=== PATIENT | male | born 1945 | race Hispanic/Latino ===

== ENCOUNTER 2017-12-09 08:30 | Inpatient (IN) | payer MEDICARE, MEDICAID ==
[2017-12-21] MEDS ORDERED: Lidocaine 1% (PF) 30 ML VIAL ONE (06:30)
[2017-12-21] MEDS ORDERED: Midazolam HCl 2 mg/2 ml Vial ONE (06:30)
[2017-12-21] MEDS ORDERED: Fentanyl 100 MCG/2 ML VIAL ONE ×3 (06:30→09:25)
[2017-12-21] MEDS ORDERED: CEFAZOLIN/Water 2 GM/20 ML SYRINGE ONE (06:33)
[2017-12-21] MEDS ORDERED: Sodium Chloride 0.9% 100 ML ONE (06:33)
[2017-12-21] MEDS ORDERED: Promethazine HCl 25 MG/ML VIAL IM PRN ×3 (06:59→08:01)
[2017-12-21] MEDS ORDERED: traMADol HCl 50 MG TAB PO PRN ×2 (06:59)
[2017-12-21] MEDS ORDERED: Ketorolac Tromethamine 30 MG/ML VIAL IVP PRN (06:59)
[2017-12-21] MEDS ORDERED: Ondansetron HCl/PF 4 MG/2 ML Vial IVP PRN ×3 (06:59→08:01)
[2017-12-21] MEDS ORDERED: Zolpidem Tartrate 5 MG TAB PO PRN (06:59)
[2017-12-21] MEDS ORDERED: Fentanyl 100 MCG/2 ML VIAL IV PRN (07:00)
[2017-12-21] MEDS ORDERED: HYDROcodone/Acetaminophen 7.5/325 mg Tablet PO PRN ×2 (07:01)
[2017-12-21] MEDS ORDERED: Promethazine HCl 25 MG/ML VIAL SLOW IVP PRN (08:01)
[2017-12-21] MEDS ORDERED: Pioglitazone HCl 15 MG TAB PO SCH (09:00)
[2017-12-21] MEDS ORDERED: Amlodipine 5 MG TAB PO SCH (09:00)
[2017-12-21] MEDS ORDERED: Aspirin 81 mg Enteric Coated Tablet PO SCH (09:00)
[2017-12-21] MEDS ORDERED: Meperidine HCl/PF 25 MG/ML VIAL ONE (09:05)
[2017-12-21] MEDS ORDERED: Promethazine HCl 25 MG/ML VIAL ONE (09:29)
--- NOTE | 2017-12-21 10:12 | OP ---
DATE OF PROCEDURE: 12/21/2017 PREOPERATIVE DIAGNOSIS: End-stage tricompartmental osteoarthritis, right knee. POSTOPERATIVE DIAGNOSIS: End-stage tricompartmental osteoarthritis, right knee. OPERATIVE PROCEDURE: Cemented cruciate-sparing computer-assisted right total knee arthroplasty. SURGEON: Vineet Hay M.D. TYRE FINISHER AND EXAMINER: Chadd Lamar PA-C. ANESTHESIA: General via laryngeal mask airway augmented with indwelling adductor canal and a single shot anterior sciatic block. COMPONENTS USED: [employer] Triathlon primary knee components cemented cruciate-sparing siz e 5 femoral component, cemented cruciate-sparing size 5 tibial component with a 13 mm polyethylene fi xed bearing insert, and an A35 patellar button. TOURNIQUET TIME: 61 minutes at 300 mmHg. 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 ESTIMATED BLOOD LOSS: Less than 100. DRAINS: None. SPECIMENS: None. COMPLICATIONS: None. COUNTS: Correct. INPUT: 1200 crystalloid. OUTPUT: No Sorto, none recorded. INDICATIONS FOR SURGERY: Mr. Lewis is a 72-year-old male who has had progressive right kne e pain with standing and walking for the last 5-7 years. He has failed conservative management and e lected to proceed with total knee arthroplasty for treat of his pain. PROCEDURE IN DETAIL: After informed consent was obtained in the preoperative holding area. The duke ent was taken to the operative suite where general anesthesia was induced. Once adequate level of ge neral anesthesia was obtained, the patient was positioned and a well-padded tourniquet was placed carly und the right proximal thigh. The right lower extremity was then prepped and draped in the usual cony rile fashion. Prior to exsanguination, a time out was called and all members of the surgical team ag ángel upon site, surgeon, and patient. The extremity was then exsanguinated and the tourniquet was ra ised. A midline longitudinal incision was then made directly over the patella extending two fingerbr eadths above the superior pole of the patella and two fingerbreadths inferior to the inferior patella r pole of the patella. Deeper subcutaneous layers were dissected sharply and local bleeding was cont rolled with Bovie electrocautery. A quad tendon longitudinal split was then made sharply and a media n parapatellar arthrotomy was carried out both sharp and with Bovie electrocautery, carried down to o ne fingerbreadth medial to the tibial tubercle. The knee was then placed into flexion and the patell a was everted nicely, and a copious fat pad ectomy was performed allowing for greater exposure of the tibia. The computer-assisted distal femoral fiducial was then placed and pinned firmly, and the dis brittany femoral cutting guide was pinned firmly into place. The oscillating saw was then used to remove the appropriate amount of bone. The 4-in-1 cutting block was then placed on the distal femur and the oscillating saw was used to remove the appropriate amount of bone off of the anterior, posterior, an d chamfer cuts. After completion of bone cuts, the anterior cruciate ligament was resected sharply a nd the posterior cruciate ligament retractor was placed and the tibia was subluxed for better exposur e. Partial meniscectomies were carried out, and the tibial computer-assisted fiducial was pinned, an d the cutting guide was placed. Oscillating saw was then used to remove the bone with Hohmann retrac tors used to take care and protect the collateral ligaments. After the tibial resection was performe d, a laminar computer security coordinator was placed in between the freshened bone cuts. The knee placed at 90 degrees a nd further bilateral meniscectomies were carried out, and the curved osteotome and curettage was used to remove any excess bone spurs in the posterior compartment. The trial femoral component, tibial b aseplate were placed with the appropriate polyethylene trial insert with an appropriate polyethylene spacer and patellar button. The knee was taken through full range of motion with flexion and extensi on from 0-90 degrees and patellar broach squarely in the trochlea without any squinting or subluxatio n noted. The knee was also stable to varus and valgus stressing at 0, 15, 45, and 90 degrees of flex ion. The drawer was negative. All trial components were then removed and the keel punch was used to provide the appropriate defect in the tibia with a mallet. The freshened bone cuts were copiously ir rigated with pulsatile lavage of about 1-1/2 liters to remove all excess debris. The freshened bone cuts were then dried and with suction and lap sponge. The knee was placed in flexion and retractors were placed to provide access to all bone cuts. Tobramycin impregnated methyl methacrylate cement wa s then placed on the freshened bone cuts and implants which were malleted firmly into place. Curetta ge and [place] elevators were used to remove any excess bone cement. The knee was placed into full ext ension and the patellar button was placed under compression, and the cement was allowed to cure. Onc e completed, the components were again taken through full range of motion and copious irrigation of t he knee was carried out with another liter of normal saline. All components were inspected fully wit h full range of motion and varus and valgus stressing. There was no laxity noted and full extension w as observed clinically. Primary closure was accomplished with #2 interrupted Vicryl stitch of the ar throtomy defect. This was oversewn with a #2 running Quill barbed stitch. The subcutaneous layer wa s then closed with a running 0 barbed Monocryl stitch and skin closure accomplished with a running ordaz bcuticular 3-0 Monocryl barbed Quill stitch and augmented with cement on the skin. Tourniquet was lo wered. Good spontaneous return of distal pulses was noted clinically and a sterile dressing was appl ied to the incision. The procedure was terminated without any complications. The patient was awaken ed in the operative suite and taken to the recovery room in stable condition.
--- NOTE | 2017-12-21 10:19 | RAD ---
RIGHT KNEE TWO VIEWS: History: Follow up knee replacement. FINDINGS/IMPRESSION: Post op changes are noted. Knee prosthesis is in place. The components appear in adequate position an d alignment. POS: [facility]
[2017-12-21] MEDS ORDERED: Bupivacaine 0.25% HCL 30 ML VIAL ONE (11:55)
[2017-12-21] MEDS ORDERED: Ropivacaine 0.5% HCl/PF (150 MG/30 ML VIAL) ONE (11:55)
[2017-12-21] MEDS: metFORMIN 500 MG TAB PO SCH ×2 (12:23→17:45)
[2017-12-21] MEDS: Ferrous Gluconate 324 MG TAB PO SCH ×2 (12:23→21:19)
[2017-12-21] MEDS: Sodium Chloride 0.9% 1,000 ML IV SCH ×2 (12:23→16:04)
[2017-12-21] MEDS: Senokot S 8.6-50 MG TAB PO SCH ×2 (12:24→21:19)
[2017-12-21] MEDS: Multivitamin W/ Minerals 1 TAB PO SCH (12:24)
[2017-12-21] MEDS ORDERED: Lidocaine 1% PF 5 ML VIAL ONE (12:43)
[2017-12-21] MEDS ORDERED: Ondansetron HCl/PF 4 MG/2 ML Vial ONE (12:43)
[2017-12-21] MEDS ORDERED: PROPOFOL 200 MG/20 ML VIAL ONE (12:43)
[2017-12-21 14:50] LABS: Actual Bicarbonate (HCO3a) 23.1 mEq/L (22-28); Base Excess (BEa) -1.8 mEq/L (-2.0 to +3.0); CO2 Tension 39.8 mmHg (35.0-45.0); Calcium, Ionized 1.1 mmol/L (1.12-1.30); Hemoglobin (Hb) 12.8 g/dL (14.0-18.0); O2 Tension (PaO2) 66.4 mmHg (> 70.0); Puncture Site RBA; pH, Arterial 7.38 (7.35-7.45)
[2017-12-21] MEDS ORDERED: Dextrose 5% in Water 1,000 ML IV PRN (14:59)
[2017-12-21] MEDS ORDERED: Dextrose 50% Abboject 50 ML SYRINGE SLOW IVP PRN (14:59)
[2017-12-21] MEDS ORDERED: Sodium Chloride 0.9% 1,000 ML IV SCH (15:00)
--- NOTE | 2017-12-21 15:10 | PDOC.PN ---
- Subjective Encounter Start Date: 12/21/17 Encounter Start Time: 15:09 Subjective: immediately post my consultation, pt became pale, lethargic, decreaded -: respirations. BP not measurable - Objective MAR Reviewed: Yes Vital Signs & Weight: Vital Signs (12 hours) Temp Pulse Resp BP Pulse Ox 12/21/17 11:46 97.0 F L 67 18 95 12/21/17 10:55 97.0 F L 67 18 134/84 95 Weight Weight 164 lb Result Diagrams: 12/21/17 15:04 12/21/17 15:04 Radiology Reviewed by me: Yes (cxr- no chf, infiltrate, etc) EKG Reviewed by me: Yes (NSR, Nl EKG) Phys Exam - Physical Examination Constitutional: NAD Neck: no JVD Respiratory: clear to auscultation bilateral Cardiovascular: RRR, no significant murmur Gastrointestinal: soft, non-tender, positive bowel sounds Musculoskeletal: no edema Dx/Plan (1) Hypotension Status: Acute Qualifiers: Hypotension type: unspecified hypotension type Qualified Code(s): I95.9 - Hypotension, unspecified (2) DM type 2 (diabetes mellitus, type 2) Status: Chronic Qualifiers: Diabetes mellitus family service center director insulin use: without family service center director use Diabetes mellitus complication status: without complication Qualified Code(s): E11.9 - Type 2 diabetes mellitus without complications (3) Diverticulosis of colon Code(s): K57.30 - DVRTCLOS OF LG INT W/O PERFORATION OR ABSCESS W/O BLEEDING Status: Chronic Qualifiers: Diverticulosis bleeding: diverticulosis without bleeding Qualified Code(s) : K57.30 - Diverticulosis of large intestine without perforation or abscess without bleeding (4) HTN (hypertension) Code(s): I10 - ESSENTIAL (PRIMARY) HYPERTENSION Status: Chronic Qualifiers: Hypertension type: essential hypertension Qualified Code(s): I10 - Essential (primary) hypertension (5) HTN (hypertension) Code(s): I10 - ESSENTIAL (PRIMARY) HYPERTENSION Status: Acute - Plan fluid resuscitation- BP 130/90. has recieved NS bolus. cont NS 100 ml/hr -: hold antihypertensives -: accu/ss -: monitor overnite in CCU -: CXR/ EKG/ cbc, cmp, cortisol, abg ordered.45 min CC time * .
[2017-12-21 15:11] LABS: #Basophils 0.1 thou/uL (0.0-0.2); #Eosinphils 0.1 thou/uL (0.0-0.7); #Lymphocytes 2.5 thou/uL (1.20-3.40); #Monocytes 1.1 thou/uL (0.11-0.59); #Neutrophils 8.1 thou/uL (1.40-6.50); %Basophils 0.5 % (0.0-1.0); %Eosinophils 0.7 % (0.0-10.0); %Lymphocytes 21.3 % (21.0-51.0); %Monocytes 9.2 % (0.0-10.0); %Neutrophils 68.3 % (42.0-75.0); Hemoglobin 12.8 g/dL (14.0-18.0); Mean Corpuscular Hemoglobin 25.6 pg (27.0-31.0); Mean Platelet Volume 8.4 fL (7.4-10.4); Platelet Count 199 thou/uL (130-400); RBC Distribution Width 17.2 % (11.5-14.5); Red Blood Cell (RBC) Count 5.01 mill/uL (4.70-6.10); White Blood Cell (WBC) Count 11.9 thou/uL (4.8-10.8)
[2017-12-21 15:18] LABS: Prothrombin Time 13.1 SEC (12.0-14.7)
[2017-12-21 15:34] LABS: ALT (SGPT) 26 U/L (8-55); AST (SGOT) 25 U/L (5-34); Albumin 3.8 g/dL (3.4-4.8); Alkaline Phosphatase 58 U/L (40-150); Anion Gap 14 mmol/L (10-20); BUN (Urea Nitrogen) 11 mg/dL (8.4-25.7); Bilirubin, Total 0.8 mg/dL (0.2-1.2); Calc. Creatinine Clearance 76 mL/min (70-130); Calcium 8.2 mg/dL (7.8-10.44); Carbon Dioxide 23 mmol/L (23-31); Chloride 104 mmol/L (98-107); Estimated GFR-MDRD 80; Globulin 2.9 g/dL (2.4-3.5); Glucose 143 mg/dL (83-110); Potassium 4.2 mmol/L (3.5-5.1); Protein, Total 6.7 g/dL (5.8-8.1); Sodium 137 mmol/L (136-145)
[2017-12-21 15:36] LABS: Troponin I 0.033 ng/mL (< 0.028)
--- NOTE | 2017-12-21 15:38 | HP ---
CONSULTING PHYSICIAN: Vineet Hay M.D. PRIMARY CARE PROVIDER: Gabriela Govea M.D. HISTORY OF PRESENT ILLNESS: The patient is postop right total knee arthroplasty. He has had a littl e bit of chills, maybe little sweats postoperatively. No chest pain, no shortness of breath. He has had some very minimal nausea. PAST MEDICAL HISTORY: Pertinent for diabetes mellitus, type 2; hypertension; dyslipidemia, history o f diverticulosis bleeding. PAST SURGICAL HISTORY: He had a laparoscopic hand-assisted sigmoid colostomy with splenic flexure mo bilization, inguinal and umbilical hernia repair, appendectomy, cholecystectomy. He has had a ventra l hernia repair. CURRENT MEDICATIONS: At home was aspirin 81 mg a day, pravastatin 10 mg at bedtime, glipizide 5 mg a day, quinapril 20 mg a day, amlodipine 5 mg a day, metformin 1000 mg twice a day, pioglitazone 30 mg daily. ALLERGIES: No known drug allergies. SOCIAL HISTORY: , at bedside, Yakut speaking. FULL CODE status. No tobacco, no alcoh ol. FAMILY HISTORY: Pertinent for hypertension and diabetes in multiple family members. REVIEW OF SYSTEMS: General: At this point, he has some dizziness arising, no fainting. Eyes: No d ouble vision, blurred vision. ENT: No ear, nose, or throat problems. Cardiac: No chest pain, orth opnea, or paroxysmal nocturnal dyspnea. Respiratory: No cough, wheezing, or asthma. Gastrointestin al: Mild nausea, no vomiting, no abdominal pain, no diarrhea. Genitourinary: No hematuria or dysur ia. Musculoskeletal: He has pain in his right knee from the incision. He has minor swelling in his legs. Neurological: No strokes, seizures, or focal weakness. Psychiatric: No anxiety or depressi on. Skin: No chronic bruising or rash. Heme/Lymph: No tender or swollen lymph nodes. PHYSICAL EXAMINATION: VITAL SIGNS: His blood pressure 134/84, pulse 67, respirations 18, temperature 97.0. HEENT: Examination of head, eyes, ears, nose, and throat reveal pupils equal and round. Extraocular movements are intact. Sclerae white. Tympanic membranes clear. Nose clear. Oral mucous membranes are wet. NECK: Supple, without jugular venous distention, adenopathy, or thyromegaly. CHEST: Clear to auscultation and percussion. HEART: Regular rate and rhythm. First and second heart sounds are clear. There are no appreciated murmurs or gallops. ABDOMEN: Soft, bowel sounds are normal. There is no hepatosplenomegaly, no mass, no rebound, no bru its. EXTREMITIES: Reveal no cyanosis, clubbing, or edema. He has a bandaged right leg, mid thigh to mid calf. PULSES: Carotid, radial, femoral, and dorsalis pedis pulses intact. SKIN: Warm and dry without bruises or rash. HEME/LYMPH: No tender or swollen lymph nodes in the axilla, inguinal, or cervical area. NEUROLOGICAL: Cranial nerves II-XII are intact. Moves all extremities. Toes downgoing. LABORATORY AND X-RAY FINDINGS: There is no laboratory on the chart; 12/09/2017, he had a PT/INR of 1 .0. EKG reveals regular sinus rhythm, within normal limits, reviewed by me. ADMITTING DIAGNOSES: Postoperative right total knee arthroplasty; diabetes mellitus, type 2; hyperte nsion; dyslipidemia. PLAN: The patient is stable postop. We will follow with you.
[2017-12-21] MEDS: Aspirin 81 mg Enteric Coated Tablet PO SCH ×2 (15:41→21:19)
--- NOTE | 2017-12-21 15:44 | RAD ---
CHEST ONE VIEW: History: Hypotension. Comparison: 12-09-17 FINDINGS: Cardiac silhouette and pulmonary vasculature are unremarkable. Mediastinum is midline with aortic calcification and a tortuous aorta. No confluent airspace consolidation or evidence of pneumot horax. surveillance monitor leads overlie the chest. IMPRESSION: 1. Atherosclerosis. 2. Chronic type findings are stable. POS: [facility]
[2017-12-21] MEDS: CEFAZOLIN/Water 2 GM/20 ML SYRINGE SLOW IVP SCH ×2 (16:04→21:19)
[2017-12-21] MEDS ORDERED: Aspirin 325 mg Enteric Coated Tablet PO SCH (17:00)
[2017-12-21 19:30] LABS: Troponin I 0.026 ng/mL (< 0.028)
[2017-12-21] MEDS: traMADol HCl 50 MG TAB PO PRN (21:18)
[2017-12-21] MEDS: Pravastatin Sodium 20 MG TAB PO SCH (21:19)
[2017-12-21 21:31] LABS: Troponin I 0.022 ng/mL (< 0.028)
[2017-12-22] MEDS: Bupivacaine 0.5% 50 ML in Sodium Chloride 0.9% 50 ML NERVE BLCK SCH ×2 (02:09→18:07)
[2017-12-22 05:03] LABS: Hemoglobin 11.8 g/dL (14.0-18.0); Mean Corpuscular HGB CONC 33.1 g/dL (32.0-36.0); Mean Corpuscular Volume 78.5 fL (78.0-98.0); Mean Platelet Volume 8.3 fL (7.4-10.4); Platelet Count 189 thou/uL (130-400); RBC Distribution Width 17.1 % (11.5-14.5); Red Blood Cell (RBC) Count 4.53 mill/uL (4.70-6.10); White Blood Cell (WBC) Count 10.4 thou/uL (4.8-10.8)
[2017-12-22] MEDS: Sodium Chloride 0.9% 1,000 ML IV SCH ×4 (07:14→20:15)
[2017-12-22] MEDS: traMADol HCl 50 MG TAB PO PRN (07:33)
[2017-12-22] MEDS: metFORMIN 500 MG TAB PO SCH ×2 (07:35→18:07)
[2017-12-22] MEDS: Aspirin 81 mg Enteric Coated Tablet PO SCH ×2 (07:36→20:13)
[2017-12-22] MEDS: Senokot S 8.6-50 MG TAB PO SCH ×2 (07:37→20:13)
[2017-12-22] MEDS: Ferrous Gluconate 324 MG TAB PO SCH ×2 (07:37→20:13)
[2017-12-22] MEDS: Enoxaparin Sodium 40 MG/0.4 ML SYRINGE SC SCH (07:38)
[2017-12-22] MEDS: Multivitamin W/ Minerals 1 TAB PO SCH (07:38)
--- NOTE | 2017-12-22 08:26 | PRG ---
DATE OF SERVICE: 12/22/2017 This is a 72-year-old gentleman that speaks no Kyrgyz. He says this morning with the help of transl ation he is better, no pain, no shortness of breath. PHYSICAL EXAMINATION: VITAL SIGNS: Sats are 98% on 2 liters, temperature 98, blood pressure resolved 120/80. CHEST: Chest reveals decreased breath sounds without wheezing. CARDIAC: Normal S1, S2. No gallops. ABDOMEN: Soft. EXTREMITIES: No edema. H&H is stable. IMPRESSION: 1. Status post hypertension, presumed vasovagal reaction. 2. Status post total knee. PLAN: He can be transferred out of the ICU. Pulmonary Critical Care will follow at a distance.
--- NOTE | 2017-12-22 09:00 | CON ---
DATE OF CONSULTATION: 12/21/2017 HISTORY: This is a 72-year-old gentleman, Latin-Maltese, speaks no Danish. 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 He was transferred from the surgical floor downstairs after he developed an episode of syncope, pale, lethargic, low blood pressure. Apparently, he is now in the ICU. Chris Kelly is asked to see the patient in the ICU. He was hypotensive that has since resolved . He denies any chest pain, shortness of breath, coughing, or wheezing. He had bolus of fluids before he came down, his blood pressure was 130/90. Previous extensive history is well-outlined in the patient's multiple medical records. He states yi t he had the right total knee surgery done for chronic pain. History of ventral hernia issues, for which he had recent surgery done. PAST MEDICAL HISTORY: Diabetes and hypertension. PREVIOUS SURGERIES: Ventral hernia, sigmoid colostomy, appendix, gallbladder. ALLERGIES: None. TOBACCO: None. ALCOHOL: None. REVIEW OF SYSTEMS: Otherwise negative. PHYSICAL EXAMINATION: GENERAL: ICU, in no distress. VITAL SIGNS: Sats 100%, blood pressure is 130/80, respirations 18, pulse 80. CHEST: Decreased breath, no wheezing. CARDIAC: Normal S1 and S2. No gallops. ABDOMEN: Soft. No masses. LABORATORY AND X-RAY FINDINGS: PO2 was 66, pCO2 of 39 on 2 liters, now his are sats 100%. X-ray was normal. White count 11,000, H and H 12 and 40, platelet count 199. Renal function normal. IMPRESSION: 1. Patient is status post total knee surgery. 2. Brief episode of hypotension, probably a vasovagal reaction. Blood pressure promptly responded. 3. Diabetes. 4. Hypertension. PLAN: He will be observed in the ICU overnight. Cardiac enzymes and EKG have been ordered. At this stage, nothing to suspect, pulmonary emboli. Continue deep venous thrombosis prophylaxis. Supporti ve care. Early ambulation. Consultation note, 70 minutes, 50% in direct patient care.
--- NOTE | 2017-12-22 09:07 | PDOC.PN ---
- Subjective Encounter Start Date: 12/22/17 Encounter Start Time: 09:05 Subjective: alert, doing well - Objective MAR Reviewed: Yes Vital Signs & Weight: Vital Signs (12 hours) Temp Pulse Resp Pulse Ox 12/22/17 07:44 98.2 F 82 20 100 12/22/17 07:00 98.2 F 12/22/17 04:00 98.6 F 12/22/17 00:00 98.6 F Weight Weight 164 lb Most Recent Monitor Data Heart Rate from ECG 82 NIBP 137/83 NIBP BP-Mean 91 Respiration from ECG 22 SpO2 100 I&O: 12/21/17 12/22/17 12/23/17 06:59 06:59 06:59 Intake Total 2870 200 Output Total 1325 275 Balance 1545 -75 Result Diagrams: 12/22/17 04:26 12/21/17 15:04 Additional Labs: Accuchecks 12/22/17 12/21/17 07:15 14:43 POC Glucose 157 H 133 H Phys Exam - Physical Examination Neck: no JVD Respiratory: clear to auscultation bilateral Cardiovascular: RRR, no significant murmur Gastrointestinal: soft, non-tender, positive bowel sounds Musculoskeletal: no edema Dx/Plan (1) Hypotension Status: Acute Qualifiers: Hypotension type: unspecified hypotension type Qualified Code(s): I95.9 - Hypotension, unspecified (2) DM type 2 (diabetes mellitus, type 2) Status: Chronic Qualifiers: Diabetes mellitus terminal superintendent insulin use: without custodial use Diabetes mellitus complication status: without complication Qualified Code(s): E11.9 - Type 2 diabetes mellitus without complications (3) Diverticulosis of colon Code(s): K57.30 - DVRTCLOS OF LG INT W/O PERFORATION OR ABSCESS W/O BLEEDING Status: Chronic Qualifiers: Diverticulosis bleeding: diverticulosis without bleeding Qualified Code(s) : K57.30 - Diverticulosis of large intestine without perforation or abscess without bleeding (4) HTN (hypertension) Code(s): I10 - ESSENTIAL (PRIMARY) HYPERTENSION Status: Chronic Qualifiers: Hypertension type: essential hypertension Qualified Code(s): I10 - Essential (primary) hypertension (5) HTN (hypertension) Code(s): I10 - ESSENTIAL (PRIMARY) HYPERTENSION Status: Acute - Plan hypotension resolved, probable vaso-vagal -: return to ortho -: reinstitute HTN meds when BP goes up -: cont accu/ss * .
[2017-12-22] MEDS: HYDROcodone/Acetaminophen 10/325 mg Tablet PO PRN ×3 (10:13→18:08)
[2017-12-22] MEDS: Pravastatin Sodium 20 MG TAB PO SCH (20:13)
[2017-12-22] MEDS: Zolpidem Tartrate 5 MG TAB PO PRN (22:26)
[2017-12-23] MEDS: Acetaminophen 325 MG TAB PO PRN (03:44)
[2017-12-23] MEDS: Bupivacaine 0.5% 50 ML in Sodium Chloride 0.9% 50 ML NERVE BLCK SCH (05:33)
[2017-12-23 05:57] LABS: Hemoglobin 11.4 g/dL (14.0-18.0); Mean Corpuscular HGB CONC 33.6 g/dL (32.0-36.0); Mean Corpuscular Hemoglobin 26.1 pg (27.0-31.0); Mean Corpuscular Volume 77.8 fL (78.0-98.0); Mean Platelet Volume 8.3 fL (7.4-10.4); Platelet Count 177 thou/uL (130-400); RBC Distribution Width 16.7 % (11.5-14.5); Red Blood Cell (RBC) Count 4.37 mill/uL (4.70-6.10); White Blood Cell (WBC) Count 12.1 thou/uL (4.8-10.8)
[2017-12-23] MEDS: metFORMIN 500 MG TAB PO SCH ×2 (08:50→17:18)
[2017-12-23] MEDS: HYDROcodone/Acetaminophen 10/325 mg Tablet PO PRN ×2 (08:51→21:46)
[2017-12-23] MEDS: Senokot S 8.6-50 MG TAB PO SCH ×2 (10:46→21:44)
[2017-12-23] MEDS: Multivitamin W/ Minerals 1 TAB PO SCH (10:47)
[2017-12-23] MEDS: Ferrous Gluconate 324 MG TAB PO SCH ×2 (10:47→21:43)
[2017-12-23] MEDS: Aspirin 81 mg Enteric Coated Tablet PO SCH ×2 (10:47→21:46)
[2017-12-23] MEDS: Enoxaparin Sodium 40 MG/0.4 ML SYRINGE SC SCH (10:47)
--- NOTE | 2017-12-23 13:10 | PDOC.PN ---
- Subjective Encounter Start Date: 12/23/17 Encounter Start Time: 13:08 Subjective: doing well - Objective MAR Reviewed: Yes Vital Signs & Weight: Vital Signs (12 hours) Temp Pulse Resp BP Pulse Ox 12/23/17 11:11 98.4 F 92 18 119/75 92 L 12/23/17 08:04 98.2 F 93 16 138/82 93 L 12/23/17 05:00 98.4 F 12/23/17 04:35 100 F H 96 20 145/89 H 93 L 12/23/17 03:40 93 L Weight Admit Weight 164 lb Weight 164 lb Most Recent Monitor Data Heart Rate from ECG 80 NIBP 135/80 NIBP BP-Mean 90 Respiration from ECG 18 SpO2 100 I&O: 12/22/17 12/23/17 12/24/17 06:59 06:59 06:59 Intake Total 2870 1120 Output Total 1325 1225 Balance 1545 -105 Result Diagrams: 12/23/17 05:27 12/21/17 15:04 Additional Labs: Accuchecks 12/23/17 12/23/17 12/22/17 09:49 06:24 21:03 POC Glucose 167 H 126 H 189 H 12/22/17 16:58 POC Glucose 161 H Phys Exam - Physical Examination Neck: no JVD Respiratory: clear to auscultation bilateral Cardiovascular: RRR, no significant murmur Gastrointestinal: soft, positive bowel sounds Musculoskeletal: no edema Dx/Plan (1) Hypotension Status: Acute Qualifiers: Hypotension type: unspecified hypotension type Qualified Code(s): I95.9 - Hypotension, unspecified (2) DM type 2 (diabetes mellitus, type 2) Status: Chronic Qualifiers: Diabetes mellitus terminal gauger insulin use: without long-term use Diabetes mellitus complication status: without complication Qualified Code(s): E11.9 - Type 2 diabetes mellitus without complications (3) Diverticulosis of colon Code(s): K57.30 - DVRTCLOS OF LG INT W/O PERFORATION OR ABSCESS W/O BLEEDING Status: Chronic Qualifiers: Diverticulosis bleeding: diverticulosis without bleeding Qualified Code(s) : K57.30 - Diverticulosis of large intestine without perforation or abscess without bleeding (4) HTN (hypertension) Code(s): I10 - ESSENTIAL (PRIMARY) HYPERTENSION Status: Chronic Qualifiers: Hypertension type: essential hypertension Qualified Code(s): I10 - Essential (primary) hypertension (5) HTN (hypertension) Code(s): I10 - ESSENTIAL (PRIMARY) HYPERTENSION Status: Acute Qualifiers: Hypertension type: essential hypertension Qualified Code(s): I10 - Essential (primary) hypertension - Plan doing well, BP stable off home meds- cont to hold -: DM adequately controlled * .
[2017-12-23] MEDS: Sodium Chloride 0.9% 1,000 ML IV SCH ×2 (14:49→17:47)
[2017-12-23] MEDS: HumaLOG 300 UNITS/3 ML VIAL SC PRN ×2 (17:18→21:48)
[2017-12-23] MEDS: Pravastatin Sodium 20 MG TAB PO SCH (21:42)
[2017-12-23] MEDS: Zolpidem Tartrate 5 MG TAB PO PRN (21:42)
[2017-12-24] MEDS: Sodium Chloride 0.9% 1,000 ML IV SCH ×3 (06:44→22:30)
[2017-12-24] MEDS: Aspirin 81 mg Enteric Coated Tablet PO SCH ×2 (10:08→21:32)
[2017-12-24] MEDS: Enoxaparin Sodium 40 MG/0.4 ML SYRINGE SC SCH (10:08)
[2017-12-24] MEDS: Senokot S 8.6-50 MG TAB PO SCH ×2 (10:08→21:34)
[2017-12-24] MEDS: Ferrous Gluconate 324 MG TAB PO SCH ×2 (13:51→21:34)
[2017-12-24] MEDS: metFORMIN 500 MG TAB PO SCH ×2 (13:51→17:41)
[2017-12-24] MEDS: Multivitamin W/ Minerals 1 TAB PO SCH (13:52)
[2017-12-24] MEDS: HYDROcodone/Acetaminophen 10/325 mg Tablet PO PRN (13:52)
[2017-12-24] MEDS: HumaLOG 300 UNITS/3 ML VIAL SC PRN (17:41)
[2017-12-24] MEDS: Pravastatin Sodium 20 MG TAB PO SCH (21:32)
--- NOTE | 2017-12-24 23:16 | PDOC.PN ---
- Subjective Encounter Start Date: 12/24/17 Encounter Start Time: 19:00 Subjective: nsg notes rev, paola ovn - Objective Vital Signs & Weight: Vital Signs (12 hours) Temp Pulse Resp BP Pulse Ox 12/24/17 21:54 98.6 F 92 16 151/88 H 94 L 12/24/17 20:00 98.6 F 92 16 12/24/17 16:00 98.0 F 95 14 134/80 94 L 12/24/17 11:26 98.0 F 95 14 144/85 H 94 L Weight Admit Weight 164 lb Weight 164 lb Most Recent Monitor Data Heart Rate from ECG 80 NIBP 135/80 NIBP BP-Mean 90 Respiration from ECG 18 SpO2 100 I&O: 12/23/17 12/24/17 12/25/17 06:59 06:59 06:59 Intake Total 4623 191 3758 Output Total 1225 450 450 Balance -105 -180 1005 Result Diagrams: 12/23/17 05:27 12/21/17 15:04 Additional Labs: Accuchecks 12/24/17 12/24/17 12/24/17 21:40 16:16 11:12 POC Glucose 176 H 213 H 197 H 12/24/17 05:21 POC Glucose 137 H Dx/Plan - Plan (1) Hypotension resolved - has baseline HTN, should re-start home regimen (2) DM type 2 (diabetes mellitus, type 2) chronic, stable (3) Diverticulosis of colon chronic, stable (4) HTN (hypertension) see above t/c d/c if continued hemodynamic stability Review of Systems - Medications/Allergies Allergies/Adverse Reactions: Allergies Allergy/AdvReac Type Severity Reaction Status Date / Time No Known Drug Allergies Allergy Verified 07/24/16 11:43 Medications: Current Medications Acetaminophen (Tylenol) 650 mg PO Q4H PRN PRN Reason: MUNOZ/ T > 101F; Mild Pain (1-3) Last Admin: 12/23/17 03:44 Dose: 650 mg Hydrocodone Bitart/Acetaminophen (Benzonia 10/325) 1 tab PO Q4H PRN PRN Reason: Moderate Pain (4-6) Last Admin: 12/23/17 21:46 Dose: 1 tab Hydrocodone Bitart/Acetaminophen (Benzonia 10/325) 2 tab PO Q4H PRN PRN Reason: Severe Pain (7-10) Last Admin: 12/24/17 13:52 Dose: 2 tab Aspirin (Ecotrin) 81 mg PO BID [facility] Last Admin: 12/24/17 21:32 Dose: 81 mg Dextrose/Water (Dextrose 50%) 25 gm SLOW IVP PRN PRN PRN Reason: Hypoglycemia Diphenhydramine HCl (Benadryl) 25 mg PO Q6H PRN PRN Reason: Itching Enoxaparin Sodium (Lovenox) 40 mg SC 0900 [facility] Last Admin: 12/24/17 10:08 Dose: 40 mg Fentanyl (Sublimaze) 50 mcg IV Q1H PRN PRN Reason: BREAKTHROUGH PAIN Ferrous Gluconate (Fergon) 324 mg PO BID [facility] Last Admin: 12/24/17 21:34 Dose: 324 mg Glucagon (Glucagon) 1 mg IM PRN PRN PRN Reason: Hypoglycemia Bupivacaine HCl 50 ml/ Sodium (Chloride) 100 mls @ 0 mls/hr NERVE BLCK INF [facility] PRN Reason: As Directed Last Admin: 12/23/17 05:33 Dose: 100 mls Sodium Chloride (Normal Saline 0.9%) 1,000 mls @ 100 mls/hr IV .Q10H [facility] Last Admin: 12/24/17 22:30 Dose: Not Given Dextrose/Water (D5w) 1,000 mls @ 0 mls/hr IV .Q0M PRN; As Directed PRN Reason: Hypoglycemia Insulin Human Lispro (Humalog) 0 units SC .MILD SLIDING SCALE PRN PRN Reason: Mild Correctional Scale Last Admin: 12/24/17 17:41 Dose: 3 unit Iron/Minerals/Multivitamins (Theragran M) 1 tab PO DAILY [facility] Last Admin: 12/24/17 13:52 Dose: 1 tab Metformin HCl (Glucophage) 1,000 mg PO BID-[facility] Last Admin: 12/24/17 17:41 Dose: 1,000 mg Ondansetron HCl (Zofran) 4 mg IVP Q6H PRN PRN Reason: Nausea/Vomiting Pravastatin Sodium (Pravachol) 10 mg PO HS [facility] Last Admin: 12/24/17 21:32 Dose: 10 mg Promethazine HCl (Phenergan) 12.5 mg IM Q4H PRN PRN Reason: Nausea/Vomiting Senna/Docusate Sodium (Senokot S) 2 tab PO BID [facility] Last Admin: 12/24/17 21:34 Dose: 2 tab Sodium Chloride (Flush - Normal Saline) 10 ml IVF Q12HR [facility] Last Admin: 12/24/17 21:34 Dose: 10 ml Sodium Chloride (Flush - Normal Saline) 10 ml IVF PRN PRN PRN Reason: Saline Flush Tramadol HCl (Ultram) 100 mg PO Q6H PRN PRN Reason: Mild Pain (1-3) Last Admin: 12/22/17 07:33 Dose: 100 mg Zolpidem Tartrate (Ambien) 5 mg PO HSPRN PRN PRN Reason: Insomnia Last Admin: 12/23/17 21:42 Dose: 5 mg
[2017-12-25] MEDS: HYDROcodone/Acetaminophen 10/325 mg Tablet PO PRN ×2 (00:24→21:37)
[2017-12-25 07:02] LABS: #Eosinphils 0.2 thou/uL (0.0-0.7); #Lymphocytes 3.1 thou/uL (1.20-3.40); #Monocytes 1.2 thou/uL (0.11-0.59); #Neutrophils 6.3 thou/uL (1.40-6.50); %Basophils 0.4 % (0.0-1.0); %Eosinophils 1.9 % (0.0-10.0); %Lymphocytes 28.7 % (21.0-51.0); %Monocytes 10.7 % (0.0-10.0); %Neutrophils 58.3 % (42.0-75.0); Hemoglobin 11.2 g/dL (14.0-18.0); Mean Corpuscular HGB CONC 33.1 g/dL (32.0-36.0); Mean Corpuscular Hemoglobin 25.8 pg (27.0-31.0); Mean Platelet Volume 7.6 fL (7.4-10.4); Platelet Count 245 thou/uL (130-400); RBC Distribution Width 16.3 % (11.5-14.5); Red Blood Cell (RBC) Count 4.33 mill/uL (4.70-6.10); White Blood Cell (WBC) Count 10.8 thou/uL (4.8-10.8)
[2017-12-25 07:19] LABS: Anion Gap 14 mmol/L (10-20); BUN (Urea Nitrogen) 13 mg/dL (8.4-25.7); Calc. Creatinine Clearance 99 mL/min (70-130); Calcium 9.3 mg/dL (7.8-10.44); Carbon Dioxide 26 mmol/L (23-31); Chloride 100 mmol/L (98-107); Estimated GFR-MDRD Greater than 90; Glucose 148 mg/dL (83-110); Potassium 3.6 mmol/L (3.5-5.1); Sodium 136 mmol/L (136-145)
[2017-12-25] MEDS: Enoxaparin Sodium 40 MG/0.4 ML SYRINGE SC SCH (08:47)
[2017-12-25] MEDS: Multivitamin W/ Minerals 1 TAB PO SCH (08:48)
[2017-12-25] MEDS: Aspirin 81 mg Enteric Coated Tablet PO SCH (08:48)
[2017-12-25] MEDS: metFORMIN 500 MG TAB PO SCH (08:48)
[2017-12-25] MEDS: Ferrous Gluconate 324 MG TAB PO SCH (08:48)
[2017-12-25] MEDS: Senokot S 8.6-50 MG TAB PO SCH ×2 (08:48→21:38)
--- NOTE | 2017-12-25 10:21 | PDOC.PN ---
- Subjective Encounter Start Date: 12/25/17 (near syncope) Encounter Start Time: 10:19 Subjective: code dylan called for patient - per RN, holding pt up and both slumped -: as pt c/o feeling dizzy. Pt found in the bathroom on a chair, bp 80's/40's -: and pulse ox 81% - oxygen placed and pt returned to bed. Pt c/o some difficulty breathing. denies chest pain/n/v/abd pain. c/o knee pain. He does feel lightheaded and dizzy. Ate breakfast without difficulty. - Objective Vital Signs & Weight: Vital Signs (12 hours) Temp Pulse Resp BP Pulse Ox 12/25/17 08:15 97.7 F 86 16 123/84 92 L 12/25/17 04:00 98.6 F 86 16 124/87 92 L 12/25/17 00:26 98.4 F 99 16 131/78 94 L Weight Admit Weight 164 lb Weight 191 lb 12.8 oz Most Recent Monitor Data Heart Rate from ECG 80 NIBP 135/80 NIBP BP-Mean 90 Respiration from ECG 18 SpO2 100 I&O: 12/24/17 12/25/17 12/26/17 06:59 06:59 06:59 Intake Total 270 1455 Output Total 450 450 Balance -180 1005 Result Diagrams: 12/25/17 10:10 12/25/17 06:45 Additional Labs: Accuchecks 12/25/17 12/24/17 12/24/17 05:52 21:40 16:16 POC Glucose 144 H 176 H 213 H 12/24/17 11:12 POC Glucose 197 H Phys Exam - Physical Examination Constitutional: NAD pupils equal and round Respiratory: no wheezing, no rales, no rhonchi, clear to auscultation bilateral Cardiovascular: RRR, no significant murmur Gastrointestinal: soft, non-tender, no distention, positive bowel sounds surgical dressings in place, no active bleeding. Some edema in RLE associated with surgery Neurological: non-focal upper and lower strength 5/5, symmetric, CN 2-12 intact Psychiatric: normal affect Skin: no rash Dx/Plan (1) Near syncope Status: Acute (2) Acute respiratory failure with hypoxia Code(s): J96.01 - ACUTE RESPIRATORY FAILURE WITH HYPOXIA Status: Acute (3) Hypotension Status: Acute Qualifiers: Hypotension type: unspecified hypotension type Qualified Code(s): I95.9 - Hypotension, unspecified (4) DM type 2 (diabetes mellitus, type 2) Status: Chronic Qualifiers: Diabetes mellitus penitentiary insulin use: without termite treater helper use Diabetes mellitus complication status: without complication Qualified Code(s): E11.9 - Type 2 diabetes mellitus without complications - Plan * New hypoxia and hypotension - stat CT chest with contrast to rule out PE. NS bolus 500 ml and continue maintanence fluids. * Near syncope - check ecg, abg, labs, and will order blood and urine cultures * transfer to IMCU for closer monitoring * * d/c fentanyl and higher dose of norco - monitor pain med requirements * * blood sugar 233 - SSI prn. D/c metformin due to contrast study today * * post-operative care per Ortho. * * dvt prophy - on lovenox and bid aspirin * gi prophy - not indicated * code status full * * reviewed plan of care with patient and through an jewelry designer, no questions or further needs at end of evaluation.. * * critical care time 35 minutes
[2017-12-25 10:24] LABS: #Basophils 0.1 thou/uL (0.0-0.2); #Eosinphils 0.3 thou/uL (0.0-0.7); #Lymphocytes 3.9 thou/uL (1.20-3.40); #Monocytes 1.5 thou/uL (0.11-0.59); #Neutrophils 7.5 thou/uL (1.40-6.50); %Basophils 0.6 % (0.0-1.0); %Eosinophils 1.9 % (0.0-10.0); %Lymphocytes 29.6 % (21.0-51.0); %Monocytes 11.4 % (0.0-10.0); %Neutrophils 56.5 % (42.0-75.0); Hemoglobin 11.9 g/dL (14.0-18.0); Mean Corpuscular Volume 78.6 fL (78.0-98.0); Mean Platelet Volume 7.7 fL (7.4-10.4); Platelet Count 265 thou/uL (130-400); RBC Distribution Width 16.7 % (11.5-14.5); Red Blood Cell (RBC) Count 4.58 mill/uL (4.70-6.10); White Blood Cell (WBC) Count 13.2 thou/uL (4.8-10.8)
[2017-12-25 10:29] LABS: Prothrombin Time 13.1 SEC (12.0-14.7)
[2017-12-25] MEDS ORDERED: Sodium Chloride 0.9% 500 ML IV SCH (10:30)
[2017-12-25 10:36] LABS: ALT (SGPT) 17 U/L (8-55); AST (SGOT) 15 U/L (5-34); Albumin 3.7 g/dL (3.4-4.8); Alkaline Phosphatase 84 U/L (40-150); Anion Gap 19 mmol/L (10-20); BUN (Urea Nitrogen) 14 mg/dL (8.4-25.7); Bilirubin, Total 1.8 mg/dL (0.2-1.2); Calc. Creatinine Clearance 75 mL/min (70-130); Calcium 9.7 mg/dL (7.8-10.44); Carbon Dioxide 21 mmol/L (23-31); Chloride 99 mmol/L (98-107); Estimated GFR-MDRD 66; Globulin 3.7 g/dL (2.4-3.5); Glucose 225 mg/dL (83-110); Potassium 3.6 mmol/L (3.5-5.1); Protein, Total 7.4 g/dL (5.8-8.1); Sodium 135 mmol/L (136-145)
--- NOTE | 2017-12-25 11:32 | CT ---
CT CHEST WITH 3D VOLUME RENDERING: CLINICAL INDICATION: Hypoxia new onset. FINDINGS: There is a linear-oriented filling defect involving the distal left main pulmonary artery which exten ds into the left upper lobe segmental branches compatible with pulmonary embolus. There is diffuse v ascular disease including coronary artery calcium. Pulmonary emphysema is present. There are bilate ral patchy parenchymal opacities. IMPRESSION: Evidence of pulmonary embolus involving the distal left main pulmonary artery and left upper lobe seg mental branches. Telephone call of findings placed to patient's physician, Dr. Vickie Santos, at the time of interpretat ion 1047 hours 12/25/17. CODE CR POS: SJGeoffrey
[2017-12-25] MEDS: Sodium Chloride 0.9% 1,000 ML IV SCH (11:42)
--- NOTE | 2017-12-25 11:51 | PDOC.EVN ---
Event Note - Event Note Event Note: Called by Seth with PE in the left main and upper lobe on CT Chest - Pulm consult - discussed with Dr. Gutiérrez - Heparin gtt ordered - called pharmacy with request to look at dosing given that pt had lovenox 40 mg at 8:47 this mornign for DVT prophy, and surgery 4 days ago - to see if bolus needed or need to adjust it. Jasmin to look and call me back - Informed Dr. Cash by phone who is covering for Dr. Hay - discussed that anticoagulation is needed - Discussed with patient and through the video tier over - discussed high risk diagnosis that can can cause major problems including , risk of bleeding in/around his knee - that we dont know if or how much bleednig may occur and it is a risk. The both state understanding of the complexity of the situation, severity of this new diagnosis, and the treatment recommended - they agree. - Type and screen Total time spent with above critical care is 25 minutes.
[2017-12-25 12:06] LABS: Hemoglobin 10.7 g/dL (14.0-18.0); Platelet Count 223 thou/uL (130-400)
[2017-12-25] MEDS: Heparin 25,000 units/D5W 500 ML IVPB SCH (12:45)
[2017-12-25] MEDS: Heparin 10,000 UNITS/ 10 ML VIAL SLOW IVP SCH ×2 (12:45→21:09)
--- NOTE | 2017-12-25 14:01 | PRG ---
DATE OF SERVICE: 12/25/2017 SERVICE: Pulmonary Medicine. INTERVAL HISTORY: On the floor this morning, the patient was discovered to have very low blood press ure all of a sudden. He was very short of breath and became weak in the knees. This occurred when t he patient's was trying to stand him up. He fell over, but did not strike his head. He was ass isted fall to the ground. He did not lose consciousness. He was subsequently sent for CT scan of th e chest. It confirmed that he had a pulmonary embolism. We are in the process of getting him downst airs for close observation. On 2 liters nasal cannula, his oxygen saturations popped right back up. He is not terribly tachycardic or tachypneic. He denies any current shortness of breath, chest pain , belly pain. PHYSICAL EXAMINATION: VITAL SIGNS: Afebrile, pulse 90, blood pressure 115/70, respirations 16, saturation 81% on 2 liters nasal cannula, saturations popped up to 91%. HEENT: Normocephalic, atraumatic. Sclerae are white, conjunctivae pink. Oral mucosa is moist witho ut lesions. LUNGS: Decent air entry. There is not really prolonged expiratory phase or wheezing present. I do not appreciate dependent crackles or rhonchi. HEART: Normal rate, regular. ABDOMEN: Soft, nontender and nondistended. Bowel sounds are positive. MUSCULOSKELETAL: No cyanosis or clubbing. There is 2+ pitting in the right lower extremity. This i s a surgical site on the side. It is clean, dry, and intact. There is no edema of the left lower ex tremity. NEUROLOGIC: Grossly nonfocal. LABORATORY DATA: WBC 13.2, hemoglobin 11.9, platelets 265,000. INR 1.0. Basic metabolic profile an d liver function studies are essentially unremarkable except for bilirubin that is 1.8, possibly asso ciated with decreased p.o. IMAGING DATA: CTA of the chest demonstrates severe emphysematous changes of the bilateral upper lobe s. There is no acute infiltrative process other than a minimal atelectasis in the bibasilar regions. There is minimal reflux of contrast into the inferior vena cava. The right ventricle was a little bit distended. That being said, I do not see any significant of the left ventricle to suggest significant RV dysfunction or significant elevation in the right-sided pressures. ASSESSMENT: 1. Acute hypoxic respiratory failure. 2. Acute pulmonary embolism. 3. Chronic obstructive pulmonary disease without current exacerbation. 4. Status post right total knee replacement, postoperative day #4. PLAN: The patient is doing fantastic at this point. We are going to initiate him on a heparin drip. He is not a candidate for TPA because he does not have significant RV dysfunction or strain, and he recently had a surgery. He will remain in IMCU for 24 hours. If he is hemodynamically stable over this period of time and does not have increasing oxygen requirements, we will transition him to the f thomas.
[2017-12-25] MEDS: HumaLOG 300 UNITS/3 ML VIAL SC PRN ×2 (14:21→18:23)
[2017-12-25] MEDS ORDERED: ISOVUE-370 76%-LOCM 1 ML ONE (14:49)
--- NOTE | 2017-12-25 17:41 | EKG ---
Test Reason : CODE GREEN Blood Pressure : / mmHG Vent. Rate : 078 BPM Atrial Rate : 078 BPM P-R Int : 160 ms QRS Dur : 100 ms QT Int : 376 ms P-R-T Axes : 055 033 020 degrees QTc Int : 428 ms Normal sinus rhythm Normal ECG When compared with ECG of 09-DEC-2017 12:43, No significant change was found Confirmed by HUMAIRA FLAHERTY (2) on 12/25/2017 5:40:53 PM Referred By: COLIN Confirmed By:HUMAIRA FLAHERTY
[2017-12-25] MEDS: Pravastatin Sodium 20 MG TAB PO SCH (21:37)
[2017-12-26] MEDS: Heparin 25,000 units/D5W 500 ML IVPB SCH ×2 (03:07→15:18)
[2017-12-26] MEDS: Ferrous Gluconate 324 MG TAB PO SCH ×3 (04:09→20:49)
[2017-12-26 04:13] LABS: #Basophils 0.1 thou/uL (0.0-0.2); #Eosinphils 0.2 thou/uL (0.0-0.7); #Lymphocytes 3.3 thou/uL (1.20-3.40); #Neutrophils 4.8 thou/uL (1.40-6.50); %Basophils 0.6 % (0.0-1.0); %Lymphocytes 35.2 % (21.0-51.0); %Monocytes 10.3 % (0.0-10.0); %Neutrophils 51.9 % (42.0-75.0); Hemoglobin 10.2 g/dL (14.0-18.0); Mean Corpuscular Hemoglobin 25.9 pg (27.0-31.0); Mean Corpuscular Volume 78.4 fL (78.0-98.0); Platelet Count 240 thou/uL (130-400); RBC Distribution Width 16.3 % (11.5-14.5); Red Blood Cell (RBC) Count 3.93 mill/uL (4.70-6.10); White Blood Cell (WBC) Count 9.3 thou/uL (4.8-10.8)
[2017-12-26 04:21] LABS: Anion Gap 14 mmol/L (10-20); BUN (Urea Nitrogen) 15 mg/dL (8.4-25.7); Calc. Creatinine Clearance 98 mL/min (70-130); Calcium 8.8 mg/dL (7.8-10.44); Carbon Dioxide 25 mmol/L (23-31); Chloride 101 mmol/L (98-107); Estimated GFR-MDRD 90; Glucose 174 mg/dL (83-110); Potassium 3.2 mmol/L (3.5-5.1); Sodium 137 mmol/L (136-145)
[2017-12-26] MEDS: Heparin 10,000 UNITS/ 10 ML VIAL SLOW IVP SCH ×2 (05:15→19:58)
[2017-12-26] MEDS: HumaLOG 300 UNITS/3 ML VIAL SC PRN ×3 (06:21→17:22)
[2017-12-26] MEDS ORDERED: Potassium Chloride 20 MEQ TAB PO SCH (06:45)
[2017-12-26] MEDS: Multivitamin W/ Minerals 1 TAB PO SCH (08:21)
[2017-12-26] MEDS: HYDROcodone/Acetaminophen 10/325 mg Tablet PO PRN (08:21)
[2017-12-26] MEDS: Senokot S 8.6-50 MG TAB PO SCH ×2 (08:23→20:49)
--- NOTE | 2017-12-26 11:08 | PDOC.PN ---
- Subjective Encounter Start Date: 12/26/17 (f/u PE) Encounter Start Time: 11:06 Subjective: Pt reports feeling better today - denies any cp/sob/n/v/abd pain -: states knee looks more red today. - Objective Vital Signs & Weight: Vital Signs (12 hours) Temp Pulse Resp BP Pulse Ox 12/26/17 08:00 98.9 F 93 20 97 12/26/17 07:32 98.9 F 93 20 135/79 100 12/26/17 03:41 98.3 F 87 18 132/74 99 12/26/17 00:00 98.4 F 95 16 128/79 96 Weight Admit Weight 164 lb Weight 191 lb 12.8 oz Most Recent Monitor Data Heart Rate from ECG 80 NIBP 135/80 NIBP BP-Mean 90 Respiration from ECG 18 SpO2 100 I&O: 12/25/17 12/26/17 12/27/17 06:59 06:59 06:59 Intake Total 1455 1400 Output Total 450 850 325 Balance 1005 550 -325 Result Diagrams: 12/26/17 03:16 12/26/17 03:16 Additional Labs: Accuchecks 12/26/17 12/26/17 12/25/17 10:27 05:28 20:47 POC Glucose 255 H 181 H 202 H 12/25/17 18:18 POC Glucose 190 H EKG Reviewed by me: Yes (tele - sinus 90's-100's, PVC's ) Phys Exam - Physical Examination Constitutional: NAD Respiratory: no wheezing, no rales, no rhonchi Cardiovascular: RRR, no significant murmur Gastrointestinal: soft, non-tender, no distention more erythema and edema around right knee, no blood on bandage overlying the surgical site Neurological: moves all 4 limbs Psychiatric: normal affect Dx/Plan (1) Pulmonary embolus Code(s): I26.99 - OTHER PULMONARY EMBOLISM WITHOUT ACUTE COR PULMONALE Status : Acute Qualifiers: Chronicity: acute Acute cor pulmonale presence: without acute cor pulmonale (2) Near syncope Status: Acute (3) Acute respiratory failure with hypoxia Code(s): J96.01 - ACUTE RESPIRATORY FAILURE WITH HYPOXIA Status: Acute (4) Hypotension Status: Acute Qualifiers: Hypotension type: unspecified hypotension type Qualified Code(s): I95.9 - Hypotension, unspecified (5) DM type 2 (diabetes mellitus, type 2) Status: Chronic Qualifiers: Diabetes mellitus extermination inspector insulin use: without extermination inspector use Diabetes mellitus complication status: without complication Qualified Code(s): E11.9 - Type 2 diabetes mellitus without complications (6) Hypokalemia Code(s): E87.6 - HYPOKALEMIA Status: Acute - Plan * PE - on heparin gtt and tolerating. Appreciate Pulm consult * * Knee -more erythema- discussed with Dr. ribeiro who will evaluate today * * DM - not optimally controlled, add bedtime SSI and resume home metformin * * replace potassium * * bp's normal, no oxygen requirement * * continue other home meds as ordered * * gi prophy - not indicated * code status full * * reviewe dplan of care with patient/ who demonstrate understanding through the video plow mechanic. * transfer to tele as hemodynamics stable * no questions or further needs at end of eval * * * 18:42 - of note,pt had a contrast study yesterday, will d/c the metformin order - needs to be off for 48 hours. He has received one dose tonight - order cancelled and RN updated to the change in plan. Will change the humalog correction scale to moderate, and continue the ordered bedtime scale. Discussed with Radiologist - monitor kidneys, as metformin is generally held for 2 days. Will also run some IVF slowly overnight to flush kidneys. Discussed this plan with the patient who demonstrates understanding with RN to translate - reviewed the possible medication interaction, intention to flush the kidneys and monitoring of the kidney function. * * Pt requesting pain medication and sleep medication -has both tylenol and benadryl available. Requested to nursing staff to hold narcotics with the benadryl, as if pt has mental status changes will not know if he is acutely declining or medication effect. * * Pt asking about walking tomorrow - defer to Dr. Hay tomorrow. *
[2017-12-26] MEDS ORDERED: metFORMIN 500 MG TAB PO SCH (17:00)
[2017-12-26] MEDS ORDERED: Sodium Chloride 0.9% 1,000 ML IV SCH (19:00)
[2017-12-26] MEDS: diphenhydrAMINE 25 MG CAP PO PRN (20:48)
[2017-12-26] MEDS: Acetaminophen 325 MG TAB PO PRN (20:49)
[2017-12-26] MEDS: Pravastatin Sodium 20 MG TAB PO SCH (20:49)
--- NOTE | 2017-12-26 22:25 | PRG ---
DATE OF SERVICE: 12/26/2017 SERVICE: Pulmonary Medicine. INTERVAL HISTORY: The patient is doing fine from a respiratory standpoint. He have any bleedi ng in his knee. There have been no overnight events. He denies any chest pain, nausea, vomiting, fe vers or chills. He is maintained on the heparin drip. PHYSICAL EXAMINATION: VITAL SIGNS: Afebrile, pulse 99, blood pressure 122/77, respirations 16, saturation 93% on room air. GENERAL: The patient is awake, alert, no apparent distress. LUNGS: Excellent air entry. There is no prolonged expiratory phase or wheezing. No rhonchi or crac kles are appreciated. HEART: Normal rate, regular. ABDOMEN: Soft, nontender and nondistended. Bowel sounds are positive. MUSCULOSKELETAL: No cyanosis or clubbing. There is no pitting in the left lower extremity. The rig ht lower extremity has 1-2+ pitting. GENITOURINARY: No Sorto catheter in place. NEUROLOGIC: Grossly nonfocal. LABORATORY DATA: WBC 9.3, hemoglobin 10.2 and gently down trending, platelets 240,000. Basic metabo lic profile is essentially unremarkable except for potassium of 3.2. ASSESSMENT: 1. Acute hypoxic respiratory failure. 2. Acute pulmonary embolism. 3. Chronic obstructive pulmonary disease without acute exacerbation. 4. Status post right total knee replacement, postop day #5. DISCUSSION AND PLAN: If the patient's hemoglobin does not drop off overnight, he can be transitioned over to a p.o. anticoagulant. Dr. Sevilla will resume care in the morning. Pulmonary or Critical Care to continue to follow.
[2017-12-27 02:22] LABS: #Eosinphils 0.2 thou/uL (0.0-0.7); #Lymphocytes 3.3 thou/uL (1.20-3.40); #Neutrophils 4.8 thou/uL (1.40-6.50); %Basophils 0.4 % (0.0-1.0); %Eosinophils 2.5 % (0.0-10.0); %Lymphocytes 35.2 % (21.0-51.0); %Monocytes 10.5 % (0.0-10.0); %Neutrophils 51.5 % (42.0-75.0); Hemoglobin 10.5 g/dL (14.0-18.0); Mean Corpuscular HGB CONC 33.5 g/dL (32.0-36.0); Mean Corpuscular Hemoglobin 25.9 pg (27.0-31.0); Mean Corpuscular Volume 77.4 fL (78.0-98.0); Mean Platelet Volume 7.4 fL (7.4-10.4); Platelet Count 274 thou/uL (130-400); RBC Distribution Width 16.2 % (11.5-14.5); Red Blood Cell (RBC) Count 4.06 mill/uL (4.70-6.10); White Blood Cell (WBC) Count 9.3 thou/uL (4.8-10.8)
[2017-12-27 03:00] LABS: Anion Gap 14 mmol/L (10-20); BUN (Urea Nitrogen) 12 mg/dL (8.4-25.7); Calc. Creatinine Clearance 89 mL/min (70-130); Carbon Dioxide 23 mmol/L (23-31); Chloride 104 mmol/L (98-107); Estimated GFR-MDRD 81; Glucose 181 mg/dL (83-110); Potassium 3.3 mmol/L (3.5-5.1); Sodium 138 mmol/L (136-145)
[2017-12-27] MEDS: Heparin 25,000 units/D5W 500 ML IVPB SCH (03:43)
[2017-12-27] MEDS: Multivitamin W/ Minerals 1 TAB PO SCH (08:55)
[2017-12-27] MEDS: Senokot S 8.6-50 MG TAB PO SCH ×2 (08:55→20:51)
[2017-12-27] MEDS: Ferrous Gluconate 324 MG TAB PO SCH ×2 (08:55→20:51)
[2017-12-27] MEDS: HumaLOG 300 UNITS/3 ML VIAL SC PRN ×3 (12:30→20:52)
--- NOTE | 2017-12-27 13:36 | PRG ---
DATE OF SERVICE: 12/27/2017 SUBJECTIVE: Mr. Lewis is a 72-year-old male who is postoperative day 6 from a right total knee arth roplasty. He also suffered a pulmonary embolism. He has been placed on telemetry floor for observat ion. He is currently very comfortable. Not dyspneic. He is able to engage in therapy. PHYSICAL EXAMINATION: GENERAL: He is alert and oriented to person, place, time, and situation. Grossly nonfocal. EXTREMITIES: He is neurovascularly intact in the left lower extremity. Incision is clean. He has a ppropriate bruising in and around the operative site. No strikethrough is noted. ASSESSMENT: 1. A 72-year-old male postop day #6 right total knee arthroplasty, doing well. 2. Pulmonary embolism. PLAN: Continue current care. We are awaiting skilled versus rehabilitation placement.
--- NOTE | 2017-12-27 14:01 | ULT ---
DOPPLER VENOUS ULTRASOUND OF BOTH LOWER EXTREMITIES: INDICATION: History of right knee surgery with concern for DVT. TECHNIQUE: Greco scale, color Doppler, and vascular duplex with spectral analysis was performed of the deep venou s structures of both lower extremities. The common femoral vein, superficial femoral vein, popliteal vein, posterior tibial vein, proximal greater saphenous, and proximal profunda veins were assessed bi laterally. FINDINGS: There is normal compression, flow, and augmentation seen within the deep venous structures of both lo wer extremities. IMPRESSION: No evidence of deep vein thrombosis in either lower extremity. POS: KRIS
[2017-12-27] MEDS ORDERED: Apixaban 5 MG TAB PO SCH (15:30)
--- NOTE | 2017-12-27 15:53 | PDOC.PN ---
- Subjective Encounter Start Date: 12/27/17 Encounter Start Time: 14:00 -: old records requested/rev Pt sen and examined, chart reviewed in its entirety, this is my first visit with this patient consult for med management, POD 6 right TKA, post op course complicated by syncope, Code and discover of PE. Eliquis started by pulm today. No F/c, no N/ V/d/C. Wants to get up and walk. plans to go to rehab tomorrow All systems reviewed and neg for all except as above - Objective MAR Reviewed: Yes Vital Signs & Weight: Vital Signs (12 hours) Temp Pulse Resp BP BP Pulse Ox 12/27/17 12:26 98.0 F 89 18 149/82 H 94 L 12/27/17 08:55 93 L 12/27/17 08:00 97.5 F L 92 16 95 12/27/17 04:02 97.5 F L 92 16 140/84 92 L Weight Admit Weight 164 lb Weight 161 lb 11.2 oz Most Recent Monitor Data Heart Rate from ECG 80 NIBP 135/80 NIBP BP-Mean 90 Respiration from ECG 18 SpO2 100 I&O: 12/26/17 12/27/17 12/28/17 06:59 06:59 06:59 Intake Total 1400 6811 480 Output Total 850 2400 Balance 550 4411 480 Result Diagrams: 12/27/17 02:07 12/27/17 02:07 Additional Labs: Accuchecks 12/27/17 12/27/17 12/26/17 10:37 05:46 20:55 POC Glucose 270 H 202 H 197 H 12/26/17 16:37 POC Glucose 225 H Radiology Reviewed by me: Yes EKG Reviewed by me: Yes Phys Exam - Physical Examination Constitutional: NAD HEENT: PERRLA, moist MMs, sclera anicteric, oral pharynx no lesions Neck: no nodes, no JVD, supple, full ROM Respiratory: no wheezing, no rales, no rhonchi, clear to auscultation bilateral Cardiovascular: RRR, no significant murmur, no rub Gastrointestinal: soft, non-tender, no distention, positive bowel sounds Musculoskeletal: pulses present, edema present right knee incision c/d/i, ecchymotic Neurological: non-focal, normal sensation, moves all 4 limbs Lymphatic: no nodes Psychiatric: normal affect, A&O x 3 Skin: no rash, normal turgor, cap refill <2 seconds Dx/Plan (1) Acute respiratory failure with hypoxia Code(s): J96.01 - ACUTE RESPIRATORY FAILURE WITH HYPOXIA Status: Acute (2) HTN (hypertension) Code(s): I10 - ESSENTIAL (PRIMARY) HYPERTENSION Status: Acute Qualifiers: Hypertension type: essential hypertension Qualified Code(s): I10 - Essential (primary) hypertension (3) Hypotension Status: Resolved Qualifiers: Hypotension type: unspecified hypotension type Qualified Code(s): I95.9 - Hypotension, unspecified (4) Near syncope Status: Resolved (5) Pulmonary embolus Code(s): I26.99 - OTHER PULMONARY EMBOLISM WITHOUT ACUTE COR PULMONALE Status : Acute Qualifiers: Chronicity: acute Acute cor pulmonale presence: without acute cor pulmonale (6) Acute blood loss anemia Code(s): D62 - ACUTE POSTHEMORRHAGIC ANEMIA Status: Acute Comment: riya post op - Plan cont current plan of care, plan discussed w/ family, PT/OT, out of bed/ambulate * .
[2017-12-27] MEDS: Apixaban 5 MG TAB PO SCH (20:51)
[2017-12-27] MEDS: Pravastatin Sodium 20 MG TAB PO SCH (20:51)
[2017-12-27] MEDS: HYDROcodone/Acetaminophen 10/325 mg Tablet PO PRN (20:51)
--- NOTE | 2017-12-28 01:01 | PRG ---
DATE OF SERVICE: 12/27/2017 SUBJECTIVE: he was_ discharged from the ICU to the floor. He developed hypotension again. This time, he was found to have pulmonary emboli, started on heparin, he is on day #2. I am going to switch him over to Eliquis. OBJECTIVE: VITAL SIGNS: Temperature 97, sats are ___94%__ on room air, respirations 16. GENERAL: He is complaining of his right knee still hurting him, but otherwise no other complaints. CHEST: Decreased breath sounds, no wheezing. CARDIAC: Normal S1 and S2. No gallops. ABDOMEN: Soft, no masses. LABORATORY DATA: His PTT is 95. White count 9000, H and H 10 and 31. IMPRESSION: Syncopal episode with evidence of pulmonary emboli, recent left total knee surgery. PLAN: I will switch him over to Eliquis at this stage. Hopefully, if he is able to tolerate it, he can be discharged home on Eliquis for a total of at least 3 months. I am ordering an ultrasound of the leg to see whether the source of his PE is recent right knee surgery. We will follow. ADAMARIS
[2017-12-28 04:39] LABS: #Eosinphils 0.3 thou/uL (0.0-0.7); #Lymphocytes 2.8 thou/uL (1.20-3.40); #Monocytes 1.1 thou/uL (0.11-0.59); #Neutrophils 5.6 thou/uL (1.40-6.50); %Basophils 0.3 % (0.0-1.0); %Eosinophils 2.9 % (0.0-10.0); %Lymphocytes 28.6 % (21.0-51.0); %Monocytes 11.1 % (0.0-10.0); %Neutrophils 57.1 % (42.0-75.0); Hemoglobin 10.3 g/dL (14.0-18.0); Mean Corpuscular HGB CONC 32.4 g/dL (32.0-36.0); Mean Corpuscular Hemoglobin 25.7 pg (27.0-31.0); Mean Corpuscular Volume 79.3 fL (78.0-98.0); Mean Platelet Volume 7.4 fL (7.4-10.4); Platelet Count 321 thou/uL (130-400); RBC Distribution Width 16.9 % (11.5-14.5); Red Blood Cell (RBC) Count 4.02 mill/uL (4.70-6.10); White Blood Cell (WBC) Count 9.8 thou/uL (4.8-10.8)
[2017-12-28 05:19] LABS: Anion Gap 13 mmol/L (10-20); BUN (Urea Nitrogen) 11 mg/dL (8.4-25.7); Calc. Creatinine Clearance 80 mL/min (70-130); Calcium 8.9 mg/dL (7.8-10.44); Carbon Dioxide 23 mmol/L (23-31); Chloride 103 mmol/L (98-107); Estimated GFR-MDRD 86; Glucose 179 mg/dL (83-110); Potassium 3.3 mmol/L (3.5-5.1); Sodium 136 mmol/L (136-145)
[2017-12-28] MEDS: Potassium Chloride 20 MEQ TAB PO SCH ×2 (09:21→15:15)
[2017-12-28] MEDS: Ferrous Gluconate 324 MG TAB PO SCH ×2 (09:22→21:39)
[2017-12-28] MEDS: Senokot S 8.6-50 MG TAB PO SCH ×2 (09:22→21:40)
[2017-12-28] MEDS: Multivitamin W/ Minerals 1 TAB PO SCH (09:22)
[2017-12-28] MEDS: Apixaban 5 MG TAB PO SCH ×2 (09:22→21:38)
[2017-12-28] MEDS: HumaLOG 300 UNITS/3 ML VIAL SC PRN ×3 (12:24→21:41)
--- NOTE | 2017-12-28 12:57 | PRG ---
DATE OF SERVICE: 12/28/2017 SUBJECTIVE: He is better this morning, less short of breath. His labs are appropriate. Today, his vital signs are stable. PHYSICAL EXAMINATION: VITAL SIGNS: Temperature 97, sats are 95% on room air, blood pressure 140/87. CHEST: No wheezing. CARDIAC: Normal S1, S2. IMPRESSION: 1. Status post total knee. 2. Complicated by hypertension and hypotension and pulmonary embolism. PLAN: Discharge home on Eliquis for a total of 3 months. Follow with surgery. Follow with primary care physician.
[2017-12-28] MEDS: HYDROcodone/Acetaminophen 10/325 mg Tablet PO PRN ×2 (15:14→23:10)
--- NOTE | 2017-12-28 16:18 | PRG ---
DATE OF SERVICE: 12/28/2017 SUBJECTIVE: Joshua is still awaiting approval for placement on either skilled or rehabilitation. Gene swenson has decided to treat him with Eliquis for 3 months. The knee is essentially stable. PHYSICAL EXAMINATION: EXTREMITIES: The knee incision looks good, bruised as expected. No strikethrough. He is neurovascu larly intact. ASSESSMENT: 1. A 72-year-old male postoperative day #7, right total knee arthroplasty, doing well. 2. Pulmonary embolism, currently asymptomatic. PLAN: Continue current care. Discharge on Eliquis per Dr. Sevilla's note. He is stable for discharge from orthopedic standpoint, but we are waiting insurance authorization for rehab versus skilled.
[2017-12-28] MEDS: metFORMIN 500 MG TAB PO SCH (19:01)
[2017-12-28] MEDS: glipiZIDE 5 MG TAB PO SCH (19:13)
[2017-12-28] MEDS: Pravastatin Sodium 20 MG TAB PO SCH (21:40)
[2017-12-28] MEDS: diphenhydrAMINE 25 MG CAP PO PRN (23:09)
[2017-12-29] MEDS: Multivitamin W/ Minerals 1 TAB PO SCH (09:16)
[2017-12-29] MEDS: Ferrous Gluconate 324 MG TAB PO SCH ×2 (09:16→20:47)
[2017-12-29] MEDS: Apixaban 5 MG TAB PO SCH ×2 (09:16→20:47)
[2017-12-29] MEDS: metFORMIN 500 MG TAB PO SCH ×2 (09:16→18:44)
[2017-12-29] MEDS: Pioglitazone HCl 15 MG TAB PO SCH (09:16)
[2017-12-29] MEDS: Senokot S 8.6-50 MG TAB PO SCH ×2 (09:18→20:43)
[2017-12-29] MEDS: HYDROcodone/Acetaminophen 10/325 mg Tablet PO PRN (12:37)
[2017-12-29] MEDS ORDERED: Amlodipine 5 MG TAB PO SCH (12:45)
[2017-12-29] MEDS: HumaLOG 300 UNITS/3 ML VIAL SC PRN ×2 (13:33→18:44)
[2017-12-29] MEDS: glipiZIDE 5 MG TAB PO SCH (18:46)
[2017-12-29] MEDS: Pravastatin Sodium 20 MG TAB PO SCH (20:47)
[2017-12-30 05:25] LABS: Anion Gap 14 mmol/L (10-20); BUN (Urea Nitrogen) 18 mg/dL (8.4-25.7); Calc. Creatinine Clearance 72 mL/min (70-130); Calcium 9.1 mg/dL (7.8-10.44); Carbon Dioxide 23 mmol/L (23-31); Chloride 103 mmol/L (98-107); Estimated GFR-MDRD 75; Glucose 149 mg/dL (83-110); Potassium 3.9 mmol/L (3.5-5.1); Sodium 136 mmol/L (136-145)
--- NOTE | 2017-12-30 08:18 | PDOC.PN ---
- Subjective Encounter Start Date: 12/28/17 Encounter Start Time: 07:40 follow up for PE, DVT post Right TKA No f/c, no N/V/d/C. tele-intpreter used, pt wants to restart his diabeteds mesMary maycol PT, awaiting insurance approval for rehab, pulm has ordered eliquid to start today. No New compalints Denies f/C, no N/V/d/c, no CP or SOB All systmes reviewed and neg x as above - Objective MAR Reviewed: Yes Vital Signs & Weight: Vital Signs (12 hours) Temp Pulse Resp BP Pulse Ox 12/30/17 04:00 98.0 F 87 18 137/92 H 94 L 12/30/17 00:00 97.8 F 101 H 18 121/77 92 L Weight Admit Weight 164 lb Weight 151 lb 9.6 oz Most Recent Monitor Data Heart Rate from ECG 80 NIBP 135/80 NIBP BP-Mean 90 Respiration from ECG 18 SpO2 100 I&O: 12/29/17 12/30/17 12/31/17 06:59 06:59 06:59 Intake Total 250 Output Total 825 Balance -575 Result Diagrams: 12/28/17 03:55 12/30/17 04:12 Additional Labs: Accuchecks 12/30/17 12/29/17 12/29/17 05:33 21:00 16:58 POC Glucose 160 H 179 H 183 H 12/29/17 11:35 POC Glucose 175 H EKG Reviewed by me: Yes Phys Exam - Physical Examination Constitutional: NAD HEENT: PERRLA, moist MMs, sclera anicteric, oral pharynx no lesions Neck: no nodes, no JVD, supple, full ROM Respiratory: no wheezing, no rales, no rhonchi, clear to auscultation bilateral Cardiovascular: RRR, no significant murmur, no rub Gastrointestinal: soft, non-tender, no distention, positive bowel sounds Musculoskeletal: pulses present right knee stable Neurological: non-focal, normal sensation, moves all 4 limbs Lymphatic: no nodes Psychiatric: normal affect, A&O x 3 Skin: no rash, normal turgor, cap refill <2 seconds Dx/Plan (1) Acute respiratory failure with hypoxia Code(s): J96.01 - ACUTE RESPIRATORY FAILURE WITH HYPOXIA Status: Resolved (2) HTN (hypertension) Code(s): I10 - ESSENTIAL (PRIMARY) HYPERTENSION Status: Acute Qualifiers: Hypertension type: essential hypertension Qualified Code(s): I10 - Essential (primary) hypertension (3) Hypotension Status: Resolved Qualifiers: Hypotension type: unspecified hypotension type Qualified Code(s): I95.9 - Hypotension, unspecified (4) Near syncope Status: Resolved (5) Pulmonary embolus Code(s): I26.99 - OTHER PULMONARY EMBOLISM WITHOUT ACUTE COR PULMONALE Status : Acute Qualifiers: Chronicity: acute Acute cor pulmonale presence: without acute cor pulmonale Comment: eliquis for 3-6 months (6) Acute blood loss anemia Code(s): D62 - ACUTE POSTHEMORRHAGIC ANEMIA Status: Acute Comment: riya post op - Plan cont current plan of care, plan discussed w/ family, PT/OT, manager social, respiratory therapy, out of bed/ambulate * .
--- NOTE | 2017-12-30 08:21 | PDOC.PN ---
- Subjective Encounter Start Date: 12/29/17 Encounter Start Time: 11:00 No new complaints, no new events. [facility] denies rehab, appeal in process. Ortho to do PTP. No f/C, no N/V/d/C. glucose better, no complaints All systmes reviewed and neg x as above - Objective MAR Reviewed: Yes Vital Signs & Weight: Vital Signs (12 hours) Temp Pulse Resp BP Pulse Ox 12/30/17 04:00 98.0 F 87 18 137/92 H 94 L 12/30/17 00:00 97.8 F 101 H 18 121/77 92 L Weight Admit Weight 164 lb Weight 151 lb 9.6 oz Most Recent Monitor Data Heart Rate from ECG 80 NIBP 135/80 NIBP BP-Mean 90 Respiration from ECG 18 SpO2 100 I&O: 12/29/17 12/30/17 12/31/17 06:59 06:59 06:59 Intake Total 250 Output Total 825 Balance -575 Result Diagrams: 12/28/17 03:55 12/30/17 04:12 Additional Labs: Accuchecks 12/30/17 12/29/17 12/29/17 05:33 21:00 16:58 POC Glucose 160 H 179 H 183 H 12/29/17 11:35 POC Glucose 175 H Phys Exam - Physical Examination Constitutional: NAD HEENT: PERRLA, moist MMs, sclera anicteric, oral pharynx no lesions Neck: no nodes, no JVD, supple, full ROM Respiratory: no wheezing, no rales, no rhonchi, clear to auscultation bilateral Cardiovascular: RRR, no significant murmur, no rub Gastrointestinal: soft, non-tender, no distention, positive bowel sounds Musculoskeletal: no edema, pulses present right knee stable Neurological: non-focal, normal sensation, moves all 4 limbs Lymphatic: no nodes Psychiatric: normal affect, A&O x 3 Skin: no rash, normal turgor, cap refill <2 seconds Dx/Plan (1) Acute respiratory failure with hypoxia Code(s): J96.01 - ACUTE RESPIRATORY FAILURE WITH HYPOXIA Status: Resolved (2) HTN (hypertension) Code(s): I10 - ESSENTIAL (PRIMARY) HYPERTENSION Status: Acute Qualifiers: Hypertension type: essential hypertension Qualified Code(s): I10 - Essential (primary) hypertension (3) Hypotension Status: Resolved Qualifiers: Hypotension type: unspecified hypotension type Qualified Code(s): I95.9 - Hypotension, unspecified (4) Near syncope Status: Resolved (5) Pulmonary embolus Code(s): I26.99 - OTHER PULMONARY EMBOLISM WITHOUT ACUTE COR PULMONALE Status : Acute Qualifiers: Chronicity: acute Acute cor pulmonale presence: without acute cor pulmonale Comment: eliquis for 3-6 months (6) Acute blood loss anemia Code(s): D62 - ACUTE POSTHEMORRHAGIC ANEMIA Status: Acute Comment: stable post op - Plan cont current plan of care, plan discussed w/ family, PT/OT, incentive spirometry , out of bed/ambulate * . trnasfer to ortho or medical. to rehab if/when approved.
[2017-12-30] MEDS: metFORMIN 500 MG TAB PO SCH ×2 (09:40→17:37)
[2017-12-30] MEDS: Senokot S 8.6-50 MG TAB PO SCH ×3 (09:40→20:35)
[2017-12-30] MEDS: Ferrous Gluconate 324 MG TAB PO SCH ×2 (09:40→20:36)
[2017-12-30] MEDS: Multivitamin W/ Minerals 1 TAB PO SCH (09:40)
[2017-12-30] MEDS: Amlodipine 5 MG TAB PO SCH (09:41)
[2017-12-30] MEDS: Apixaban 5 MG TAB PO SCH ×2 (09:41→20:36)
[2017-12-30] MEDS: Pioglitazone HCl 15 MG TAB PO SCH (09:42)
[2017-12-30] MEDS: HumaLOG 300 UNITS/3 ML VIAL SC PRN ×2 (12:11→20:38)
[2017-12-30 14:37] VITALS: BMI 23.0
[2017-12-30] MEDS: HYDROcodone/Acetaminophen 10/325 mg Tablet PO PRN (17:41)
[2017-12-30] MEDS: Pravastatin Sodium 20 MG TAB PO SCH (20:36)
[2017-12-30] MEDS: glipiZIDE 5 MG TAB PO SCH (20:36)
[2017-12-31 04:46] LABS: Hemoglobin 11.1 g/dL (14.0-18.0); Platelet Count 554 thou/uL (130-400)
[2017-12-31] MEDS: HumaLOG 300 UNITS/3 ML VIAL SC PRN ×3 (05:44→17:04)
[2017-12-31] MEDS: Pioglitazone HCl 15 MG TAB PO SCH (09:18)
[2017-12-31] MEDS: Apixaban 5 MG TAB PO SCH ×2 (09:19→21:20)
[2017-12-31] MEDS: Amlodipine 5 MG TAB PO SCH (09:20)
[2017-12-31] MEDS: Senokot S 8.6-50 MG TAB PO SCH ×2 (09:21→21:20)
[2017-12-31] MEDS: metFORMIN 500 MG TAB PO SCH ×2 (09:21→17:03)
[2017-12-31] MEDS: HYDROcodone/Acetaminophen 10/325 mg Tablet PO PRN (09:22)
[2017-12-31] MEDS: Ferrous Gluconate 324 MG TAB PO SCH ×2 (09:22→21:19)
[2017-12-31] MEDS: Multivitamin W/ Minerals 1 TAB PO SCH (09:22)
[2017-12-31] MEDS: Pravastatin Sodium 20 MG TAB PO SCH (21:19)
[2017-12-31] MEDS: glipiZIDE 5 MG TAB PO SCH (21:20)
[2018-01-01] MEDS: Pioglitazone HCl 15 MG TAB PO SCH (08:20)
[2018-01-01] MEDS: Apixaban 5 MG TAB PO SCH ×2 (08:21→19:51)
[2018-01-01] MEDS: metFORMIN 500 MG TAB PO SCH ×2 (08:21→17:29)
[2018-01-01] MEDS: Amlodipine 5 MG TAB PO SCH (08:22)
[2018-01-01] MEDS: Senokot S 8.6-50 MG TAB PO SCH ×2 (08:22→19:52)
[2018-01-01] MEDS: Ferrous Gluconate 324 MG TAB PO SCH ×2 (08:22→19:51)
[2018-01-01] MEDS: Multivitamin W/ Minerals 1 TAB PO SCH (08:22)
[2018-01-01] MEDS: HumaLOG 300 UNITS/3 ML VIAL SC PRN (12:35)
[2018-01-01] MEDS: Loperamide HCl 2 MG CAP PO PRN ×2 (14:41→19:52)
[2018-01-01] MEDS: HYDROcodone/Acetaminophen 10/325 mg Tablet PO PRN (19:13)
[2018-01-01 19:46] VITALS: BP 123/85; TEMP 97.9
[2018-01-01] MEDS: glipiZIDE 5 MG TAB PO SCH (19:51)
[2018-01-01] MEDS: Pravastatin Sodium 20 MG TAB PO SCH (19:51)
--- NOTE | 2018-01-02 16:58 | EKG ---
Test Reason : Blood Pressure : / mmHG Vent. Rate : 095 BPM Atrial Rate : 095 BPM P-R Int : 136 ms QRS Dur : 098 ms QT Int : 346 ms P-R-T Axes : 050 038 021 degrees QTc Int : 434 ms Normal sinus rhythm Possible Left atrial enlargement Borderline ECG Confirmed by HUMAIRA FLAHERTY (2) on 01/02/2018 4:58:31 PM Referred By: DEBORA Confirmed By:HUMAIRA FLAHERTY
== END 2018-01-01 20:10 | DRG 469 ==
LOC: SURG A 12-21 05:31 → SJJU 12-21 10:22 → CCU 12-21 15:05 → SURG B 12-22 11:49 → IMCU/EMU 12-25 10:32 → 2NO 12-26 12:41 → T4-B 12-29 19:38
PROVIDERS: ADMIT Orthopaedic Surgery; ATTEND Orthopaedic Surgery
PROC: 0SRC0J9 Replacement of Right Knee Joint with Synthetic Substitute, Cemented, Open Approach (ICD-10-PCS; principal; 2017-12-21)
DX: M17.11 Unilateral primary osteoarthritis, right knee (principal); J96.01 Acute respiratory failure with hypoxia; I26.99 Other pulmonary embolism without acute cor pulmonale; D62 Acute posthemorrhagic anemia; I10 Essential (primary) hypertension; R55 Syncope and collapse; J44.9 Chronic obstructive pulmonary disease, unspecified; E87.6 Hypokalemia; E11.9 Type 2 diabetes mellitus without complications; K57.30 Diverticulosis of large intestine without perforation or abscess without bleeding
CPT/HCPCS: 36415; 36416; 71045; 71275; 80048; 80053; 82533; 82565; 82805; 83735; 84484; 85014; 85018; 85025; 85027; 85049; 85610; 85730; 86850; 86900; 86901; 93005; 93010; 93970; A4216; C1713; C1776; G8978-GP-CK; G8978-GP-CL; G8979-GP-CI; G8979-GP-CJ; G8987-GO-CJ; G8988-GO-CI; J1644; J1650; J1885; J2001; J2175; J2250; J2405; J2550; J2704; J2795; J3010; J3370; J3490; J7050; S0020

== ENCOUNTER 2017-12-09 11:37 | Outpatient (CLI) | payer MEDICARE, MEDICAID ==
--- NOTE | 2017-12-09 13:07 | RAD ---
TWO VIEWS CHEST: Comparison: 04-13-16 History: Pre-operative radiograph. FINDINGS: Two views of the chest show normal sized cardiomediastinal silhouette. There is no evidence of consol idation, mass, or pleural effusion. The bones are unremarkable. IMPRESSION: No evidence of acute cardiopulmonary disease. POS: [facility]
[2017-12-09 15:23] LABS: Bilirubin Negative (Negative); Blood, Urine Negative (Negative); Clarity CLEAR (Clear); Glucose, Urine (Dipstick) 250 mg/dL (Negative); Leukocyte Negative (Negative); Nitrite Negative (Negative); Protein, Urine (Dipstick) Negative (Neg-Trace); Specific Gravity, Urine 1.021 (1.002-1.036)
[2017-12-09 15:32] LABS: Bacteria/HPF None Seen HPF (None Seen); Hyaline Casts/LPF 0-3 HYALINE CAST LPF (0-3 Hyaline); RBC/HPF 0-3 HPF (0-3); Squamous Epithelial None Seen HPF (0-3); WBC/HPF 0-3 HPF (0-3)
== END 2017-12-09 11:38 | disposition home or self-care (01) ==
LOC: LABBT 11:37
PROVIDERS: ATTEND Orthopaedic Surgery
DX: Z01.818 Encounter for other preprocedural examination (principal); M17.11 Unilateral primary osteoarthritis, right knee
CPT/HCPCS: 71046; 81001; 87081; 93005; 93010

== ENCOUNTER 2017-12-15 11:33 | Outpatient (CLI) | payer MEDICARE, MEDICAID ==
[2017-12-15 12:29] LABS: Prothrombin Time 12.8 SEC (12.0-14.7)
== END 2017-12-15 11:34 | disposition home or self-care (01) ==
LOC: LABBT 11:33
PROVIDERS: ATTEND Orthopaedic Surgery
DX: Z01.812 Encounter for preprocedural laboratory examination (principal); M17.11 Unilateral primary osteoarthritis, right knee
CPT/HCPCS: 85610; 86850; 86900; 86901

== ENCOUNTER 2018-04-15 07:23 | Outpatient (CLI) | payer MEDICARE, MEDICAID ==
--- NOTE | 2018-04-15 08:23 | ULT ---
RIGHT UPPER QUADRANT ULTRASOUND: INDICATION: Right upper quadrant pain. FINDINGS: The gallbladder is not visualized. The common duct is normal measuring 4 mm in diameter. No focal hepatic lesion or ascites. IMPRESSION: 1. Status post cholecystectomy. 2. No acute process identified within the right upper abdomen. POS: [facility]
== END 2018-04-15 07:24 | disposition home or self-care (01) ==
LOC: BICULT 07:23
PROVIDERS: ATTEND Surgery
DX: R10.11 Right upper quadrant pain (principal); Z90.49 Acquired absence of other specified parts of digestive tract
CPT/HCPCS: 76705

== ENCOUNTER 2019-01-17 14:45 | Outpatient (CLI) | payer MEDICARE, MEDICAID ==
--- NOTE | 2019-01-17 16:33 | MRI ---
EXAM: MRI of the pelvis/prostate without and with contrast HISTORY: elevated PSA COMPARISON: None TECHNIQUE: Multiplanar multisequence MR images were obtained of the pelvis without and with IV contra st. Evaluation of this exam was performed with a [employer] workstation. FINDINGS: Central gland: Moderate hypertrophy of the central gland consistent with BPH. No suspicious low T2 si gnal lesion is seen. Peripheral zone: No restricted diffusion is seen. No low signal on ADC map. Seminal vesicles: Intact without abnormality Neurovascular bundles: Intact Pelvic lymph nodes: No pelvic adenopathy Other visualized intrapelvic structures: Unremarkable Osseous structures: No marrow signal abnormality IMPRESSION: PI-RADS Category 2-low likelihood that a clinically significant cancer is present.
== END 2019-01-17 14:46 | disposition home or self-care (01) ==
LOC: TBSIIMAG 14:45
PROVIDERS: ATTEND Urology
DX: R97.20 Elevated prostate specific antigen [PSA] (principal)
CPT/HCPCS: 72197; 82565

== ENCOUNTER 2020-02-13 11:29 | Outpatient (CLI) | payer MEDICARE, MEDICAID ==
--- NOTE | 2020-02-13 13:46 | RAD ---
PA AND LATERAL CHEST: 02/13/20 HISTORY: Dyspnea. COMPARISON: 12/09/17 and 01/05/18 exams. Heart size is within normal limits. There are atherosclerotic changes of the aorta. Interstitial ashley ings appear more prominent than on the two prior exams. Some of this is just technique related and ma y just represent progression of chronic lung change. Some acute infiltrative element is difficult to exclude. IMPRESSION: Increased interstitial lung markings. More prominent than it has been on previous examinations but ma y just represent progression of chronic lung change. Developing infiltrative process particularly in the right lung is difficult to definitely exclude. POS: [facility]
== END 2020-02-13 11:30 | disposition home or self-care (01) ==
LOC: BICRAD 11:29
PROVIDERS: ATTEND Family Medicine
DX: R91.8 Other nonspecific abnormal finding of lung field (principal)
CPT/HCPCS: 71046

== ENCOUNTER 2021-05-06 08:18 | Outpatient (CLI) | payer MEDICARE, MEDICAID ==
[2021-05-06 08:56] LABS: Estimated GFR-MDRD - POC Greater than 90
[2021-05-06] MEDS ORDERED: Iopamidol 370 76% 100 ML VIAL ONE (10:10)
== END 2021-05-06 08:19 | disposition home or self-care (01) ==
LOC: CT 08:18
PROVIDERS: ATTEND Physician Assistant Medical
DX: K86.81 Exocrine pancreatic insufficiency (principal); K52.9 Noninfective gastroenteritis and colitis, unspecified; N28.1 Cyst of kidney, acquired; I71.4 Abdominal aortic aneurysm, without rupture; M47.816 Spondylosis without myelopathy or radiculopathy, lumbar region; Z90.49 Acquired absence of other specified parts of digestive tract
CPT/HCPCS: 74170; 82565; Q9967

== ENCOUNTER 2021-10-15 11:40 | Emergency (ER) | payer MEDICARE, MEDICAID ==
[2021-10-15] MEDS ORDERED: Xylocaine 1% w/ Epi 1:100K 10 ML VIAL ONE (12:04)
== END 2021-10-15 13:09 | disposition home or self-care (01) ==
LOC: ERS 11:40
DX: S51.812A Laceration without foreign body of left forearm, initial encounter (principal); E11.9 Type 2 diabetes mellitus without complications; I10 Essential (primary) hypertension; W26.0XXA Contact with knife, initial encounter
CPT/HCPCS: 12002; 94760

== ENCOUNTER 2021-10-25 16:43 | Emergency (ER) | payer MEDICARE, MEDICAID | END 2021-10-25 17:42 | disposition home or self-care (01) | LOC: ERS 16:43 | DX: S51.812D Laceration without foreign body of left forearm, subsequent encounter (principal); E11.9 Type 2 diabetes mellitus without complications; I10 Essential (primary) hypertension; X58.XXXD Exposure to other specified factors, subsequent encounter ==

== ENCOUNTER 2025-05-07 08:53 | Outpatient (CLI) | payer OTHER, MEDICAID | END 2025-05-07 08:54 | disposition home or self-care (01) | LOC: ULT 08:53 | PROVIDERS: ATTEND Nurse Practitioner Family | DX: Z12.2 Encounter for screening for malignant neoplasm of respiratory organs (principal); Z13.6 Encounter for screening for cardiovascular disorders; F17.213 Nicotine dependence, cigarettes, with withdrawal; I71.30 Abdominal aortic aneurysm, ruptured, unspecified | CPT/HCPCS: 71271; 76706 ==